=== PATIENT | male | born 1985 | race African-American/Black ===

== ENCOUNTER 2018-08-24 12:30 | Emergency (ER) | payer MEDICAID, MEDICARE ==
[~2018-08-24] VITALS: Ht 177.8 cm; Wt 110.0 kg
[~2018-08-24 12:30] MED LIST: NONE REPORTED
[2018-08-24] MEDS ORDERED: DIPHENHYDRAMINE 50MG/ML VIAL IM STA (13:29)
[2018-08-24] MEDS ORDERED: HALOPERIDOL LACTATE 5MG/ML VIAL IM STA (13:29)
[2018-08-24] MEDS ORDERED: LORAZEPAM 2MG/ML CPJ IV STA (13:29)
[2018-08-24 14:22] LABS: BASOPHILS % 0.8 % (0.0-2.0); HEMATOCRIT. 41.6 % (42.0-52.0); HEMOGLOBIN. 14.1 g/dL (14.0-18.0); LYMPHOCYTES % 38.4 % (20.0-50.0); MEAN CORPUSCULAR HEMOGLOBIN 30.4 pg (28.0-32.0); MEAN PLATELET VOLUME 7.7 fl (7.4-10.4); MONOCYTES % 9.5 % (2.0-8.0); NEUTROPHILS % 49.3 % (40.0-76.0); PLATELET 333 x1000/uL (130-400); RED BLOOD CELL COUNT 4.63 mill/uL (4.7-6.1); RED CELL DISTRIBUTION WIDTH 15.3 % (11.6-14.6)
[2018-08-24 14:27] LABS: CHLORIDE 109 mEq/L (98-107)
[2018-08-24 14:31] LABS: ETHANOL BLOOD < 10 mg/dL
[2018-08-24 19:16] LABS: CLARITY URINE CLEAR (CLEAR); COLOR URINE YELLOW (YELLOW); KETONES URINE NEGATIVE (NEGATIVE); LEUKOCYTE ESTERASE URINE NEGATIVE (NEGATIVE); NITRITE URINE NEGATIVE (NEGATIVE); OCCULT BLOOD URINE NEGATIVE (NEGATIVE); PROTEIN URINE NEGATIVE (NEGATIVE); SPECIFIC GRAVITY URINE 1.012 (1.005-1.030); UROBILINOGEN URINE 0.2 E.U./dL (0.2-1.0)
[2018-08-24 19:26] LABS: *AMPHETAMINES SCREEN URINE NEGATIVE (NEGATIVE); *BARBITURATES SCREEN URINE NEGATIVE (NEGATIVE); *BENZODIAZEPINES SCREEN URINE NEGATIVE (NEGATIVE); *COCAINE SCREEN URINE NEGATIVE (NEGATIVE)
[2018-08-24 19:27] LABS: CANNABINOID URINE SCREEN NEGATIVE (NEGATIVE); METHADONE URINE SCREEN NEGATIVE (NEGATIVE); OPIATES URINE SCREEN NEGATIVE (NEGATIVE); PHENCYCLIDINE URINE SCREEN NEGATIVE (NEGATIVE)
[2018-08-25] MEDS ORDERED: ACETAMINOPHEN 160 MG/5 ML UD CUP ONE (07:55)
[2018-08-25 15:46] VITALS: BP 121/80
== END 2018-08-25 16:03 ==
LOC: ER 12:30
DX: R47.89 Other speech disturbances (principal); F20.9 Schizophrenia, unspecified; F41.9 Anxiety disorder, unspecified; F12.10 Cannabis abuse, uncomplicated; Y08.89XA Assault by other specified means, initial encounter; Y93.9 Activity, unspecified; Y92.89 Other specified places as the place of occurrence of the external cause; Y99.8 Other external cause status
CPT/HCPCS: 36415; 80053; 80305; 80320; 81003; 85025; 96372; 96374; 99285; J1200; J1630; J2060; G0480